=== PATIENT | male | born 1990 | race Caucasian/White ===

== ENCOUNTER 2021-09-01 12:57 | Emergency (ER) | payer OTHER ==
[2021-09-01 15:07] LABS: HEMOGLOBIN 17.2 gm/dl (14.0-17.5); RED BLOOD COUNT 4.98 M/UL (4.20-5.50); WHITE BLOOD COUNT 5.7 K/UL (4.5-11.0)
[2021-09-01 16:09] LABS: BUN/CREATININE RATIO 9 (0-10)
[2021-09-02 08:14] LABS: HEMOGLOBIN A1C 4.7 % (4.8-5.6)
[2021-09-03 08:14] LABS: HBSAG SCREEN Negative (Negative); HCV AB <0.1 (0.0-0.9); HEP A AB, IGM Negative (Negative); HEP B CORE AB, IGM Negative (Negative)
== END 2021-09-01 19:30 | disposition home or self-care (01) ==
LOC: ER1 12:57
PROVIDERS: Emergency Medicine; Physician Assistant Medical
DX: K76.0 Fatty (change of) liver, not elsewhere classified (principal); R53.83 Other fatigue; R79.89 Other specified abnormal findings of blood chemistry; I10 Essential (primary) hypertension; Z51.81 Encounter for therapeutic drug level monitoring
CPT/HCPCS: 80053; 80074; 80307; 81001; 82550; 82553; 83036; 84439; 84443; 84484; 85025; 85610; 99285; Q9967